=== PATIENT | male | born 1980 | race Caucasian/White ===

== ENCOUNTER 2017-10-07 00:05 | Emergency (ER) | payer OTHER ==
[~2017-10-07] VITALS: Ht 175.3 cm; Wt 70.3 kg
[~2017-10-07 00:05] MED LIST: BENTYL10 MG PO; CIPROFLOXACIN500 M1 PO; CIPROFLOXACIN500 M3 PO; ERY-TAB500 MG PO; FLAGYL500 MG PO; IMODIUM ADVANC1 EAC1 PO; NOHOMEMEDICATIONS; ULTRAM 50MG TAB50 MG PO
[2017-10-07 00:49] LABS: ABSOLUTE BASOPHILS 0.1 thou/uL (0.0-0.2); ABSOLUTE LYMPHOCYTES 2.3 thou/uL (0.8-5.3); ABSOLUTE MONOCYTES 0.7 thou/uL (0.0-1.2); ABSOLUTE NEUTROPHILS 10.3 thou/uL (1.6-8.1); BASOPHILS 0.5 %; EOSINOPHILS 0.2 %; HEMATOCRIT 41.9 % (42.0-52.0); LYMPHOCYTES 17.3 %; MCH 29.3 pg (26.0-34.0); MCHC 33.6 g/dL (28.0-37.0); MCV 87.4 fL (80.0-100.0); MONOCYTES 5.4 %; MPV 7.5 fl. (7.2-11.1); NUCLEATED RBCS 0 /100WBC; PLATELET COUNT* 288 thou/uL (150-400); POLYS 76.6 %; RBC 4.79 mil/uL (4.50-6.00); RDW-CV 13.3 % (10.5-14.5); WBC 13.4 thou/uL (4.0-11.0)
[2017-10-07 00:59] LABS: CALCIUM 9.1 mg/dL (8.5-10.1); CREATININE 1.1 mg/dL (0.6-1.3); POTASSIUM 3.4 mmol/L (3.5-5.1)
[2017-10-07 01:03] LABS: ALBUMIN 4.3 g/dL (3.4-5.0); TOTAL BILIRUBIN 0.3 mg/dL (<0.1-1.0); TOTAL PROTEIN 8.3 g/dL (6.4-8.2)
[2017-10-07 01:11] LABS: AMP/METHAMP POSITIVE (Negative); BARBITURATES Negative (Negative); BENZODIAZEPINES Negative (Negative); COCAINE Negative (Negative); METHADONE Negative (Negative); OPIATES Negative (Negative); PCP Negative (Negative); THC Negative (Negative)
[2017-10-07 06:35] VITALS: BP 122/67
--- NOTE | 2017-10-07 11:29 | EKG ---
[place] [address] ELECTROCARDIOGRAM REPORT Name: MEGHAN PATEL Room: [facility]#: [id number] Admission: 10/07/17 Attend Phys: Discharge: 10/07/17 Date of : 76 Report #: [id number] THIS REPORT FOR: //name// [facility] ED Test Date: 2017-10-07 Test Time: 00:39:29 Pat Name: MEGHAN PATEL Department: Room: Gender: M Band Leader: FROY Joy : 1980 Requested By: Theo Jimenez Order Number: [id number] MD: López Gonzalez Measurements Intervals [place] Rate: 143 P: 68 VA: 135 QRS: 39 QRSD: 71 T: 10 QT: 278 QTc: 429 Interpretive Statements Sinus tachycardia Probable left atrial enlargement No previous ECG available for comparison Electronically Signed On 10-07-2017 11:28:45 ELECTRICAL AUTOMATION ENGINEER by López Gonzalez [email or web address] <ELECTRONICALLY SIGNED> By: López Gonzalez MD, [facility] 10/07/17 1128 0039 0039 López Gonzalez MD, FACC /EPI
[2017-10-08] MEDS ORDERED: HYDROXYZINE HCL25 M1 PO (22:04)
== END 2017-10-07 06:36 | disposition home or self-care (01) ==
LOC: M.ERS 00:05
PROVIDERS: Family Medicine
DX: F15.10 Other stimulant abuse, uncomplicated (principal); F17.200 Nicotine dependence, unspecified, uncomplicated

== ENCOUNTER 2017-10-08 21:43 | Emergency (ER) | payer OTHER ==
[~2017-10-08] VITALS: Ht 172.7 cm; Wt 70.3 kg
[2017-10-08 21:45] VITALS: BP 158/107
[2017-10-08] MEDS ORDERED: HYDROXYZINE HCL25 M1 PO (22:04)
== END 2017-10-08 22:07 | disposition home or self-care (01) ==
LOC: M.ERS 21:43
DX: F15.10 Other stimulant abuse, uncomplicated (principal)

== ENCOUNTER 2018-05-28 22:15 | Emergency (ER) | payer BC ==
[~2018-05-28] VITALS: Ht 175.3 cm; Wt 72.6 kg
[~2018-05-28 22:15] MED LIST changes: +HYDROXYZINE HCL25 M1 PO
[2018-05-28] MEDS ORDERED: TRAZODONE HCL50 MG PO (22:39)
[2018-05-28 22:50] VITALS: BP 163/107
== END 2018-05-28 22:54 | disposition still patient (30) ==
LOC: M.ERS 22:15
DX: Z53.21 Procedure and treatment not carried out due to patient leaving prior to being seen by health care provider (principal)

== ENCOUNTER 2018-05-29 17:19 | Emergency (ER) | payer BC ==
[~2018-05-29] VITALS: Ht 177.8 cm; Wt 68.0 kg
[~2018-05-29 17:19] MED LIST changes: +TRAZODONE HCL50 MG PO
[2018-05-29 17:55] LABS: ABSOLUTE BASOPHILS 0.1 thou/uL (0.0-0.2); ABSOLUTE EOSINOPHILS 0.1 thou/uL (0.0-0.7); ABSOLUTE LYMPHOCYTES 1.7 thou/uL (0.8-5.3); ABSOLUTE MONOCYTES 0.5 thou/uL (0.0-1.2); ABSOLUTE NEUTROPHILS 9.6 thou/uL (1.6-8.1); BASOPHILS 0.6 %; EOSINOPHILS 0.6 %; HEMATOCRIT 46.4 % (42.0-52.0); HEMOGLOBIN 15.6 gm/dL (14.0-18.0); LYMPHOCYTES 14.4 %; MCH 29.2 pg (26.0-34.0); MCHC 33.6 g/dL (28.0-37.0); MCV 86.8 fL (80.0-100.0); MONOCYTES 4.1 %; MPV 7.1 fl. (7.2-11.1); NUCLEATED RBCS 0 /100WBC; PLATELET COUNT* 376 thou/uL (150-400); POLYS 80.3 %; RBC 5.35 mil/uL (4.50-6.00); RDW-CV 12.9 % (10.5-14.5)
[2018-05-29 18:05] LABS: ANION GAP 19 mmol/L (7-16); BUN 12 mg/dL (7-18); CALCIUM 9.3 mg/dL (8.5-10.1); CHLORIDE 93 mmol/L (98-107); CO2 19 mmol/L (21-32); CREATININE 1.8 mg/dL (0.6-1.3); GLUCOSE 219 mg/dL (70-99); POTASSIUM 3.6 mmol/L (3.5-5.1); SODIUM 131 mmol/L (136-145)
[2018-05-29 18:12] LABS: ALBUMIN 4.2 g/dL (3.4-5.0); ALKALINE PHOSPHATASE 134 U/L (46-116); SGOT 22 U/L (15-37); SGPT 24 U/L (30-65); TOTAL BILIRUBIN 0.4 mg/dL (<0.1-1.0); TROPONIN-I LEVEL <0.06 ng/mL (<0.06)
[2018-05-29 20:13] LABS: URINE BILIRUBIN NEGATIVE (Negative); URINE BLOOD NEGATIVE (Negative); URINE CLARITY CLEAR; URINE COLOR STRAW; URINE GLUCOSE-RANDOM NEGATIVE (Negative); URINE KETONES NEGATIVE (Negative); URINE LEUKOCYTES NEGATIVE (Negative); URINE NITRITE NEGATIVE (Negative); URINE PROTEIN NEGATIVE (Negative); URINE UROBILINOGEN 0.2 E.U./dl (0.2-1.0)
[2018-05-29 20:20] LABS: AMP/METHAMP POSITIVE (Negative); BARBITURATES Negative (Negative); BENZODIAZEPINES Negative (Negative); COCAINE Negative (Negative); METHADONE Negative (Negative); OPIATES Negative (Negative); PCP Negative (Negative); THC Negative (Negative)
[2018-05-29 21:01] VITALS: BP 142/86
--- NOTE | 2018-05-30 16:11 | EKG ---
[place] [address] ELECTROCARDIOGRAM REPORT Name: MEGHAN PATEL Room: [facility]#: [id number] Admission: 05/29/18 Attend Phys: Discharge: 05/29/18 Date of : 76 Report #: [id number] THIS REPORT FOR: //name// [facility] ED Test Date: 2018-05-29 Test Time: 17:55:23 Pat Name: MEGHAN PATEL Department: Room: Gender: M Sheeter Operator: SSULLJAMILAH : 1980 Requested By: Wade Aviles Order Number: [id number] MD: Reese Wright Measurements Intervals [place] Rate: 151 P: 65 TN: 130 QRS: 46 QRSD: 71 T: QT: 318 QTc: 505 Interpretive Statements Sinus tachycardia Borderline T abnormalities, inferior leads Prolonged QT interval Compared to ECG 10/07/2017 00:39:29 Prolonged QT interval now present Electronically Signed On 05-30-2018 16:11:07 CDT by Reese Wright [email or web address] <ELECTRONICALLY SIGNED> By: Reese Wright MD, [facility] 05/30/18 1611 1755 1755 Reese Wright MD, FAC /EPI
== END 2018-05-29 21:06 | disposition home or self-care (01) ==
LOC: M.ERS 17:19
PROVIDERS: Emergency Medicine Emergency Medical Services; Personal Emergency Response Attendant
DX: F15.10 Other stimulant abuse, uncomplicated (principal); F41.9 Anxiety disorder, unspecified; Z79.899 Other long term (current) drug therapy

== ENCOUNTER 2018-11-05 14:46 | Emergency (ER) | payer BC ==
[~2018-11-05] VITALS: Ht 177.8 cm; Wt 68.0 kg
[2018-11-05] MEDS ORDERED: VYVANSE50 MG PO (15:04)
[2018-11-05] MEDS ORDERED: BUSPIRONE HCL10 MG PO (15:05)
[2018-11-05 15:22] LABS: ABSOLUTE BASOPHILS 0.1 thou/uL (0.0-0.2); ABSOLUTE LYMPHOCYTES 1.9 thou/uL (0.8-5.3); ABSOLUTE MONOCYTES 0.6 thou/uL (0.0-1.2); BASOPHILS 0.6 %; EOSINOPHILS 0.2 %; HEMATOCRIT 44.7 % (42.0-52.0); HEMOGLOBIN 15.3 gm/dL (14.0-18.0); MCH 28.7 pg (26.0-34.0); MCHC 34.3 g/dL (28.0-37.0); MCV 83.7 fL (80.0-100.0); MONOCYTES 5.5 %; MPV 6.9 fl. (7.2-11.1); NUCLEATED RBCS 0 /100WBC; PLATELET COUNT* 344 thou/uL (150-400); POLYS 77.7 %; RBC 5.35 mil/uL (4.50-6.00); RDW-CV 13.1 % (10.5-14.5); WBC 11.6 thou/uL (4.0-11.0)
[2018-11-05 15:33] LABS: ALBUMIN 4.4 g/dL (3.4-5.0); CALCIUM 9.5 mg/dL (8.5-10.1); CREATININE 1.3 mg/dL (0.6-1.3); POTASSIUM 4.1 mmol/L (3.5-5.1); TOTAL BILIRUBIN 0.5 mg/dL (<0.1-1.0); TOTAL PROTEIN 8.8 g/dL (6.4-8.2)
[2018-11-05 15:37] LABS: SALICYLATE 4.1 mg/dL (2.8-20.0)
[2018-11-05 15:38] LABS: ACETAMINOPHEN < 2 ug/mL (10-30); ALCOHOL < 10 mg/dL (<10)
[2018-11-05 15:59] LABS: URINE BILIRUBIN NEGATIVE (Negative); URINE BLOOD TRACE (Negative); URINE CLARITY CLEAR; URINE COLOR YELLOW; URINE GLUCOSE-RANDOM NEGATIVE (Negative); URINE KETONES NEGATIVE (Negative); URINE LEUKOCYTES-REFLEX NEGATIVE (Negative); URINE NITRITE-REFLEX NEGATIVE (Negative); URINE PROTEIN TRACE (Negative); URINE SPECIFIC GRAVITY >= 1.030 (1.005-1.030); URINE UROBILINOGEN 0.2 E.U./dl (0.2-1.0)
[2018-11-05 16:09] LABS: AMP/METHAMP POSITIVE (Negative); BARBITURATES Negative (Negative); BENZODIAZEPINES Negative (Negative); COCAINE Negative (Negative); METHADONE Negative (Negative); OPIATES Negative (Negative); PCP Negative (Negative); THC Negative (Negative)
[2018-11-05 17:22] VITALS: BP 146/105
== END 2018-11-05 17:23 | disposition home or self-care (01) ==
LOC: M.ERS 14:46
PROVIDERS: Emergency Medicine Emergency Medical Services
DX: F22 Delusional disorders (principal); F15.10 Other stimulant abuse, uncomplicated; F41.9 Anxiety disorder, unspecified

== ENCOUNTER 2018-12-12 12:43 | Emergency (ER) | payer BC ==
[~2018-12-12] VITALS: Ht 182.9 cm; Wt 72.6 kg
[~2018-12-12 12:43] MED LIST changes: +BUSPIRONE HCL10 MG PO; +VYVANSE50 MG PO
[2018-12-12] MEDS ORDERED: ADDERALL 10 MG10 MG PO (12:54)
[2018-12-12 13:15] LABS: ABSOLUTE BASOPHILS 0.1 thou/uL (0.0-0.2); ABSOLUTE EOSINOPHILS 0.1 thou/uL (0.0-0.7); ABSOLUTE LYMPHOCYTES 1.9 thou/uL (0.8-5.3); ABSOLUTE MONOCYTES 0.7 thou/uL (0.0-1.2); ABSOLUTE NEUTROPHILS 6.7 thou/uL (1.6-8.1); BASOPHILS 1.1 %; EOSINOPHILS 0.6 %; HEMATOCRIT 45.7 % (42.0-52.0); HEMOGLOBIN 15.6 gm/dL (14.0-18.0); LYMPHOCYTES 20.5 %; MCH 28.5 pg (26.0-34.0); MCV 83.8 fL (80.0-100.0); MPV 6.9 fl. (7.2-11.1); NUCLEATED RBCS 0 /100WBC; PLATELET COUNT* 361 thou/uL (150-400); POLYS 70.8 %; RBC 5.46 mil/uL (4.50-6.00); RDW-CV 13.4 % (10.5-14.5); WBC 9.4 thou/uL (4.0-11.0)
[2018-12-12 13:28] LABS: ALBUMIN 4.1 g/dL (3.4-5.0); CALCIUM 9.1 mg/dL (8.5-10.1); CREATININE 1.2 mg/dL (0.6-1.3); POTASSIUM 3.5 mmol/L (3.5-5.1); TOTAL BILIRUBIN 0.4 mg/dL (<0.1-1.0); TOTAL PROTEIN 8.4 g/dL (6.4-8.2)
[2018-12-12 13:47] LABS: SALICYLATE 4.7 mg/dL (2.8-20.0)
[2018-12-12 13:48] LABS: ACETAMINOPHEN < 2 ug/mL (10-30); ALCOHOL < 10 mg/dL (<10)
[2018-12-12 14:39] VITALS: BP 161/111
== END 2018-12-12 14:38 | disposition left against medical advice (07) ==
LOC: M.ERS 12:43
PROVIDERS: Emergency Medicine Emergency Medical Services
DX: F22 Delusional disorders (principal); F41.9 Anxiety disorder, unspecified

== ENCOUNTER 2019-08-25 10:04 | Emergency (ER) | payer OTHER ==
[~2019-08-25] VITALS: Ht 167.6 cm; Wt 61.2 kg
[~2019-08-25 10:04] MED LIST changes: +ADDERALL 10 MG10 MG PO
== END 2019-08-25 10:24 ==
LOC: M.ERS 10:04
DX: F19.10 Other psychoactive substance abuse, uncomplicated (principal); F41.9 Anxiety disorder, unspecified

== ENCOUNTER 2021-10-13 17:52 | Emergency (ER) | payer OTHER, MEDICAID ==
[~2021-10-13] VITALS: Ht 172.7 cm; Wt 72.6 kg
[2021-10-13 18:28] LABS: URINE BLOOD TRACE (Negative); URINE CLARITY CLEAR; URINE COLOR YELLOW; URINE GLUCOSE-RANDOM TRACE (Negative); URINE KETONES TRACE (Negative); URINE LEUKOCYTES-REFLEX NEGATIVE (Negative); URINE PROTEIN 1+ (Negative); URINE SPECIFIC GRAVITY >= 1.030 (1.005-1.030); URINE UROBILINOGEN 0.2 E.U./dl (0.2-1.0)
[2021-10-13 18:30] LABS: BACTERIA-REFLEX None Seen /HPF (None Seen); CASTS None Seen /LPF (None Seen); CRYSTALS None Seen /LPF (None Seen); ICTOTEST (BILI CONFIRMATORY) Positive (Negative); SQUAMOUS 0-3 Few /LPF (0-3); URINE BILIRUBIN 1+ (Negative); URINE NITRITE-REFLEX POSITIVE (Negative); URINE RBC 0-2 Rare /HPF (0-2); URINE WBC-REFLEX 0-5 Rare /HPF (0-5)
[2021-10-13 18:35] LABS: AMP/METHAMP POSITIVE (Negative); BARBITURATES Negative (Negative); BENZODIAZEPINES Negative (Negative); COCAINE Negative (Negative); METHADONE Negative (Negative); OPIATES Negative (Negative); PCP Negative (Negative); THC Negative (Negative)
[2021-10-13 18:36] LABS: ABSOLUTE BASOPHILS 0.1 thou/uL (0.0-0.2); ABSOLUTE LYMPHOCYTES 2.2 thou/uL (0.8-5.3); ABSOLUTE MONOCYTES 0.6 thou/uL (0.0-1.2); ABSOLUTE NEUTROPHILS 5.1 thou/uL (1.6-8.1); BASOPHILS 0.7 %; EOSINOPHILS 0.4 %; HEMATOCRIT 45.9 % (42.0-52.0); HEMOGLOBIN 15.4 gm/dL (14.0-18.0); LYMPHOCYTES 27.3 %; MCH 28.8 pg (26.0-34.0); MCHC 33.6 g/dL (28.0-37.0); MCV 85.5 fL (80.0-100.0); MONOCYTES 7.2 %; MPV 7.2 fl. (7.2-11.1); NUCLEATED RBCS 0 /100WBC; PLATELET COUNT* 340 thou/uL (150-400); POLYS 64.4 %; RBC 5.37 mil/uL (4.50-6.00); WBC 7.9 thou/uL (4.0-11.0)
[2021-10-13] MEDS ORDERED: DOXYCYCLINE 10100 M2 PO (18:45)
[2021-10-13] MEDS ORDERED: SUPRAX400 M1 PO (18:45)
[2021-10-13 18:53] LABS: CREATININE 1.3 mg/dL (0.6-1.3); POTASSIUM 3.2 mmol/L (3.5-5.1)
[2021-10-13 18:55] LABS: ALBUMIN 4.6 g/dL (3.4-5.0); ALCOHOL < 10 mg/dL (<10); SALICYLATE < 2.8 mg/dL (2.8-20.0); TOTAL BILIRUBIN 1.1 mg/dL (<0.1-1.0)
[2021-10-13 20:01] VITALS: BP 152/104
[2021-10-13 20:13] LABS: ACETAMINOPHEN < 2 ug/mL (10-30)
== END 2021-10-13 20:02 | disposition home or self-care (01) ==
LOC: M.ERS 17:52
PROVIDERS: Emergency Medicine Emergency Medical Services
DX: F91.1 Conduct disorder, childhood-onset type (principal); Z20.822 Contact with and (suspected) exposure to COVID-19; F15.10 Other stimulant abuse, uncomplicated; F41.9 Anxiety disorder, unspecified; Z79.899 Other long term (current) drug therapy